=== PATIENT | male | born 1950 | race Caucasian/White ===

== ENCOUNTER → 2023-05-18 | Outpatient (REF) | LOC: M PLAIMG 08:29 | PROVIDERS: ATTEND Internal Medicine | DX: R52 Pain, unspecified (principal) ==

== ENCOUNTER → 2023-07-19 | Day surgery (SDC) | payer MEDICARE, OTHER ==
[~2023-07-19] VITALS: Ht 167.6 cm; Wt 83.6 kg
[~2023-07-19] MED LIST: ALLO100T PO; BAYE81TA10 PO; CELE0.09 PO; EZET10TA21 PO; FAMO40TA3 PO; LIDOCAINE 2% 100MG/5ML SDV (FOR ANES.) As Ordered ONE; MAPA500C PO; OMEP40CA5 PO; RAMI1CAP24 PO; ROSU40TA4 PO; THERTAB52 PO; TOPR25TA PO; propofoL 200 MG/20 ML VIAL As Ordered ONE
[2023-07-19] MEDS: NS 1,000 ML IV ONE (09:53)
[2023-07-19 11:10] VITALS: TEMP 96.9
[2023-07-19 11:35] VITALS: BP 134/75; O2SAT 96
== END | disposition home or self-care (01) ==
LOC: M OPP 09:35
PROVIDERS: ATTEND Surgery
DX: Z12.11 Encounter for screening for malignant neoplasm of colon (principal); Z86.010 Personal history of colon polyps; K63.5 Polyp of colon; K29.70 Gastritis, unspecified, without bleeding; K30 Functional dyspepsia; Z87.891 Personal history of nicotine dependence; Z79.02 Long term (current) use of antithrombotics/antiplatelets; Z79.1 Long term (current) use of non-steroidal anti-inflammatories (NSAID); Z79.82 Long term (current) use of aspirin; Z79.899 Other long term (current) drug therapy